=== PATIENT | female | born 1975 | race Hispanic/Latino ===

== ENCOUNTER 2025-08-22 07:33 | Day surgery (SDC) | payer OTHER ==
[~2025-08-22] VITALS: Ht 152.4 cm; Wt 58.5 kg
[2025-08-22] VITALS (9 sets, daily range): BP systolic 110–125; BP diastolic 66–75; PULSE 66–78; RESP 15–18; TEMP 97.1–98.1
[~2025-08-22 07:33] MED LIST: CHOL500050 PO; ROSUVASTATIN PO
[2025-08-22] MEDS: 0.9%NACL 1000ML 1,000 ML IV ONE (08:41)
--- NOTE | 2025-08-22 11:28 | NUR ---
BOTH PT AND SPOUSE GIVEN VERBAL AND WRITTEN DISCHARGE INSTRUCTIONS IV REMOVED SITE ASYMPTOMATIC. PT TAKEN OUT VIA WHEELCHAIR SPOUSE DRIVING
== END 2025-08-22 11:25 | disposition home or self-care (01) ==
LOC: DAH 07:33 → ENDO 07:33
PROVIDERS: ATTEND Internal Medicine Gastroenterology
DX: K86.2 Cyst of pancreas (principal); K83.8 Other specified diseases of biliary tract; E78.00 Pure hypercholesterolemia, unspecified; J45.909 Unspecified asthma, uncomplicated; F41.9 Anxiety disorder, unspecified; F32.A Depression, unspecified; Z90.49 Acquired absence of other specified parts of digestive tract; Z90.710 Acquired absence of both cervix and uterus; Z98.891 History of uterine scar from previous surgery; Z86.2 Personal history of diseases of the blood and blood-forming organs and certain disorders involving the immune mechanism; Z79.899 Other long term (current) drug therapy; Z98.890 Other specified postprocedural states
CPT/HCPCS: 43237; J7030 ×2; J2704 ×2; A4620; A4215; A4657; A7002; J3490